=== PATIENT | female | born 1985 | race Caucasian/White ===

== ENCOUNTER 2016-08-12 04:35 | Inpatient (IN) | payer OTHER ==
[2016-08-12] VITALS (59 sets, daily range): BP systolic 95–133; BP diastolic 55–78
[~2016-08-12] VITALS: Ht 154.9 cm; Wt 73.1 kg
[2016-08-12] MEDS ORDERED: PREN1TAB86 PO (04:45)
[2016-08-12] MEDS ORDERED: D5 LR IV SOLUTION 1,000 ML IV ONE (05:00)
[2016-08-12] MEDS ORDERED: AMPICILLIN INJECTION 2,000 MG in NORMAL SALINE (BAXTER MINI) 50 ML IV ONE (05:07)
[2016-08-12] MEDS ORDERED: MINERAL OIL CONCENTRATE 99.9% 15 ML UDC TOP PRN (05:15)
[2016-08-12] MEDS ORDERED: LIDOCAINE/EPI 1%-1:200,000 (XYLOCAINE) 30 ML VIAL INJ PRN (05:15)
[2016-08-12 06:00] LABS: BASOPHILS % (AUTO) 0 % (0-10); EOSINOPHILS # (AUTO) 0.1 10^3/uL (0.0-0.3); EOSINOPHILS % (AUTO) 1 % (0-10); LYMPHOCYTES # (AUTO) 2.1 X 10^3 (1.0-4.0); LYMPHOCYTES % (AUTO) 17 % (12-44); MEAN CORPUSCULAR HEMOGLOBIN 29 PG (25-34); MEAN CORPUSCULAR HGB CONC 34 G/DL (32-36); MEAN CORPUSCULAR VOLUME 86 FL (80-99); MEAN PLATELET VOLUME 11.3 FL (7.4-10.4); MONOCYTES # (AUTO) 0.7 X 10^3 (0.0-1.0); MONOCYTES % (AUTO) 6 % (0-12); NEUTROPHILS # (AUTO) 9.5 X 10^3 (1.8-7.8); NEUTROPHILS % (AUTO) 77 % (42-75); PLATELET COUNT 233 10^3/uL (130-400); RED BLOOD COUNT 4.44 10^6/uL (4.35-5.85); RED CELL DISTRIBUTION WIDTH 13.1 % (10.0-14.5); WHITE BLOOD COUNT 12.4 10^3/uL (4.3-11.0)
[2016-08-12] MEDS ORDERED: CATHETER FLUSH 10 ML SYR IV SCH ×2 (06:00→22:00)
[2016-08-12] MEDS: D5 LR IV SOLUTION 1,000 ML IV SCH ×2 (06:01→12:34)
[2016-08-12] MEDS ORDERED: LIDOCAINE PF 2% 10 ML (XYLOCAINE) AMP ONE (06:15)
[2016-08-12] MEDS ORDERED: SUFENTA 1 MCG/ML BUPIVA 0.1% 100 ML ONE (06:15)
[2016-08-12] MEDS ORDERED: BUPIVACAINE 0.25% 30 ML (SENSORCAINE) VIAL ONE (06:15)
[2016-08-12] MEDS ORDERED: fentaNYL INJECTION 100 MCG/2 ML AMP ONE (06:15)
[2016-08-12] MEDS ORDERED: LACTATED RINGERS 1,000 ML IV ONE (06:22)
[2016-08-12] MEDS ORDERED: LACTATED RINGERS 1,000 ML IV SCH (07:26)
[2016-08-12] MEDS ORDERED: NALOXONE 0.4 MG/ML 1 ML (NARCAN) VIAL IV PRN ×2 (07:30)
[2016-08-12] MEDS ORDERED: METOCLOPRAMIDE INJ 10 MG/2 ML (REGLAN) IV PRN (07:30)
[2016-08-12] MEDS ORDERED: EPIDURAL (SUFENTANIL 1 MCG/ML BUPIVACAINE 0.1%) 100 ML EPI SCH (07:30)
[2016-08-12] MEDS ORDERED: fentaNYL INJECTION 100 MCG/2 ML AMP INJ ONE (07:30)
[2016-08-12] MEDS ORDERED: BUPIVACAINE 0.25% 30 ML (SENSORCAINE) VIAL INJ ONE (07:30)
[2016-08-12] MEDS ORDERED: diphenhydrAMINE 50 MG/ML INJ (BENADRYL) IV PRN (07:30)
[2016-08-12] MEDS ORDERED: OXYTOCIN/NORMAL SALINE 500 ML IV SCH ×2 (09:05→17:02)
[2016-08-12] MEDS: ONDANSETRON 4 MG/2 ML (SDV) Z0FRAN IV PRN ×2 (09:35→14:36)
[2016-08-12] MEDS ORDERED: AMPICILLIN 1000 MG INJECTION (IV/IM) ONE ×2 (09:43→15:40)
[2016-08-12] MEDS ORDERED: NORMAL SALINE (BAXTER MINI) 50 ML IV ONE (09:44)
[2016-08-12] MEDS: AMPICILLIN INJECTION 1,000 MG in NORMAL SALINE (BAXTER MINI) 50 ML IV SCH ×2 (09:54→15:49)
[2016-08-12] MEDS ORDERED: WITCH HAZEL(TUCKS) 40 EA JAR TOP PRN (17:15)
[2016-08-12] MEDS ORDERED: DIBUCAINE (NUPERCAINAL) 1% OINT 30 GM TOP PRN (17:15)
[2016-08-12] MEDS ORDERED: TETANUS,DIPTH,PERTUSS P/F (BOOSTRIX) 0.5 ML VIAL IM ONE (17:15)
[2016-08-12] MEDS ORDERED: HYDROcodone/APAP 5 MG/325 MG (LORTAB) TAB PO PRN (17:15)
[2016-08-12] MEDS ORDERED: MEASLES,MUMPS,RUBELLA 1 EA INJ SQ ONE (17:15)
[2016-08-12] MEDS ORDERED: BENZOCAINE/MENTHOL (DERMOPLAST) 56 ML CAN TP PRN (17:15)
--- NOTE | 2016-08-12 17:15 | OB Labor & Delivery Record ---
Vag Delivery Note Vag Delivery Note Date of Delivery: 08/12/16 Preoperative Diagnosis: Ngozi Lee is a 30 /Para 4 / 0,Gestational Age 40 weeks in active labor, GBS + Postoperative Diagnosis: Same Surgeon: DM HUDSON Anesthesia: epidural Delivery Type:vacuum assist Findings: Viable male , apgars Apgars were 2/9, weight, 7#7oz Lacerations: bilateral vaginal sulcus tears, the distal vagina was pulled free of the perineum. But there was no perineal laceration. The sphincter was intact. Right periurethral laceration. Intact placenta with 3 vessel cord. nuchal cord 2, reduced Estimated Blood Loss: 250 ml Complications: None Condition: Stable Description of Procedure: The patient is a 30 /Para 4 / 0,Gestational Age 40 weeks in active labor, GBS +. She was admitted and informed consent was obtained. Her labor course was remarkable for ampicillin prophylaxis for group B strep. She was given 3 full doses of ampicillin the first being a 2 g bolus. She was 3-4 cm dilated on admission. We started the ampicillin and then had artificial rupture membranes at 9 a.m. at that time she was approximately 5 cm dilated.She progressed to complete dilatation and began to push. she did not require any augmentation. The patient did have bloody show that appeared more than normal. But there is no evidence of abruption. There was meconium noted with delivery of the head. This was not noticed prior to delivery. She was then set up for delivery. she was pushing effectively however began having decelerations with each contraction. These did have recovery to baseline , but it became slower and slower, so the decision was made, with +2 station, to place a Kiwi vacuum. The head was delivered with assistance of maternal effort, and was delivered over an intact perineum. She had 2 sets of 3 pushes for delivery of the head with this vacuum. Vacuum was then removed. The infant's head was delivered atraumatically in the PEGGY position. there was a nuchal cord, and this was looped twice. This was reduced prior to delivery.The shoulders and remainder of the infant's body were then delivered without difficulty. at this point there was no meconium noted. This was fairly thick. Upon delivery, the head was held below the level of the perineum and the mouth and nares were bulb suctioned. The cord was doubly clamped and cut and the infant was handed off to the pediatric staff. An intact placenta with 3-vessel cord delivered via Renny and there was found to be minimal bleeding.~ Vigorous fundal massage was performed and the fundus was found to be firm. IV oxytocin was given. Examination of the vagina and perineum revealed a right periurethral laceration, and deep sulcal lacerations bilaterally. The posterior vaginal wall was disrupted from the perineum. But there was no perineal laceration and the sphincter was intact. These lacerations were repaired in the usual fashion with 3-0 Vicryl suture. a subsequent rectal exam revealed no disruption of the sphincter. This was also noted prior to repair. There was no rectal tear either. Following the repair, sponge, instrument and needle counts were correct. Mom and baby were both in stable condition in the labor suite. Vitals - Labs Vital Signs - I&O Vital Signs Date Time Temp Pulse Resp B/P Pulse Ox O2 Delivery O2 Flow Rate FiO2 08/12/16 11:00 64 18 131/60 100 Room Air 08/12/16 10:45 51 18 111/58 100 Room Air 08/12/16 10:30 51 18 104/57 100 Room Air 08/12/16 10:15 60 18 114/69 100 Room Air 08/12/16 10:00 96.4 60 18 115/68 100 Room Air 08/12/16 09:45 52 18 108/59 100 Room Air 08/12/16 09:30 49 18 101/57 100 Room Air 08/12/16 09:15 53 18 122/55 100 Room Air 08/12/16 09:00 79 18 95/55 100 Room Air 08/12/16 08:45 87 18 110/71 100 Room Air 08/12/16 08:30 63 18 105/62 100 Room Air 08/12/16 08:15 57 18 103/57 99 Room Air 08/12/16 08:00 95.8 18 Room Air 08/12/16 07:45 57 18 107/58 Room Air 08/12/16 07:41 57 18 107/57 Room Air 08/12/16 07:38 72 18 97/71 Room Air 08/12/16 07:35 72 18 105/61 Room Air 08/12/16 07:32 57 18 103/61 Room Air 08/12/16 07:29 53 18 107/58 Room Air 08/12/16 07:26 76 18 107/61 Room Air 08/12/16 07:23 74 18 111/63 100 Room Air 08/12/16 07:18 67 18 107/60 99 Room Air 08/12/16 07:15 66 18 106/59 100 Room Air 08/12/16 07:12 60 18 109/66 99 Room Air 08/12/16 07:09 56 18 112/63 100 Room Air 08/12/16 07:06 69 18 125/68 100 Room Air 08/12/16 07:03 66 18 124/65 100 Room Air 08/12/16 06:21 95.8 50 18 124/74 08/12/16 04:55 95.9 48 18 118/65 Labs Laboratory Tests 08/12/16 05:41: Basophils # (Auto) 0.0, Basophils (%) (Auto) 0, Eosinophils # (Auto) 0.1, Eosinophils (%) (Auto) 1, Hematocrit 38, Hemoglobin 12.9, Lymphocytes # (Auto) 2.1, Lymphocytes (%) (Auto) 17, Mean Corpuscular Hemoglobin 29, Mean Corpuscular Hemoglobin Concent 34, Mean Corpuscular Volume 86, Mean Platelet Volume 11.3H, Monocytes # (Auto) 0.7, Monocytes (%) (Auto) 6, Neutrophils # ( Auto) 9.5H, Neutrophils (%) (Auto) 77H, Platelet Count 233, Red Blood Count 4.44 , Red Cell Distribution Width 13.1, White Blood Count 12.4H DM HUDSON DO Aug 12, 2016 17:15
[2016-08-12] MEDS: IBUPROFEN 600 MG (MOTRIN) TAB PO SCH (17:39)
[2016-08-12] MEDS: DOCUSATE SODIUM 100 MG (COLACE) CAP PO SCH (21:30)
[2016-08-13] MEDS: IBUPROFEN 600 MG (MOTRIN) TAB PO SCH ×5 (00:35→23:44)
[2016-08-13 03:10] VITALS: BP 106/72
[2016-08-13 06:47] LABS: BASOPHILS % (AUTO) 0 % (0-10); EOSINOPHILS # (AUTO) 0.1 10^3/uL (0.0-0.3); EOSINOPHILS % (AUTO) 0 % (0-10); LYMPHOCYTES # (AUTO) 2.4 X 10^3 (1.0-4.0); LYMPHOCYTES % (AUTO) 13 % (12-44); MEAN CORPUSCULAR HEMOGLOBIN 30 PG (25-34); MEAN CORPUSCULAR HGB CONC 34 G/DL (32-36); MEAN CORPUSCULAR VOLUME 87 FL (80-99); MEAN PLATELET VOLUME 11.4 FL (7.4-10.4); MONOCYTES % (AUTO) 6 % (0-12); NEUTROPHILS # (AUTO) 14.3 X 10^3 (1.8-7.8); NEUTROPHILS % (AUTO) 81 % (42-75); PLATELET COUNT 229 10^3/uL (130-400); RED BLOOD COUNT 3.56 10^6/uL (4.35-5.85); WHITE BLOOD COUNT 17.7 10^3/uL (4.3-11.0)
[2016-08-13 08:45] VITALS: BP 108/44
[2016-08-13] MEDS: DOCUSATE SODIUM 100 MG (COLACE) CAP PO SCH ×2 (09:07→20:55)
[2016-08-13] MEDS: PRENATAL VITAMIN 1 EA TAB PO SCH (09:08)
[2016-08-13] MEDS: FERROUS SULF 325 MG (IRON) TAB PO SCH (09:08)
--- NOTE | 2016-08-13 10:41 | Postpartum Progress Note ---
Note Note Day # 1 s/p Subjective: Patient is without complaints. Ambulating, voiding. Tolerating a regular diet without nausea or vomiting. Normal lochia. Pain is well controlled with oral pain medications. breast feeding. Some pressure in the perineum. Objective: Laboratory Tests Test 08/13/16 06:11 Range/Units Basophils # (Auto) 0.0 0.0-0.1 10^3/uL Basophils (%) (Auto) 0 0-10 % Eosinophils # (Auto) 0.1 0.0-0.3 10^3/uL Eosinophils (%) (Auto) 0 0-10 % Hematocrit 31 L 35-52 % Hemoglobin 10.5 L 11.5-16.0 G/DL Lymphocytes # (Auto) 2.4 1.0-4.0 X 10^3 Lymphocytes (%) (Auto) 13 12-44 % Mean Corpuscular Hemoglobin 30 25-34 PG Mean Corpuscular Hemoglobin Concent 34 32-36 G/DL Mean Corpuscular Volume 87 80-99 FL Mean Platelet Volume 11.4 H 7.4-10.4 FL Monocytes # (Auto) 1.0 0.0-1.0 X 10^3 Monocytes (%) (Auto) 6 0-12 % Neutrophils # (Auto) 14.3 H 1.8-7.8 X 10^3 Neutrophils (%) (Auto) 81 H 42-75 % Platelet Count 229 130-400 10^3/uL Red Blood Count 3.56 L 4.35-5.85 10^6/uL Red Cell Distribution Width 13.0 10.0-14.5 % White Blood Count 17.7 H 4.3-11.0 10^3/uL Vital Sign - Last 24 Hours 08/12/16 08/12/16 08/12/16 08/12/16 10:45 11:00 11:15 11:30 Pulse 51 64 65 48 Resp 18 18 18 18 B/P 111/58 131/60 130/59 108/60 Pulse Ox 100 100 O2 Delivery Room Air Room Air Room Air Room Air 08/12/16 08/12/16 08/12/16 08/12/16 11:45 12:00 12:15 12:30 Pulse 52 81 50 50 Resp 18 18 18 18 B/P 108/61 111/61 113/67 105/63 O2 Delivery Room Air Room Air Room Air Room Air 08/12/16 08/12/16 08/12/16 08/12/16 12:45 13:00 13:15 13:30 Pulse 52 56 58 71 Resp 18 18 18 18 B/P 104/57 111/61 115/63 113/64 O2 Delivery Non Rebreather Non Rebreather Non Rebreather Non Rebreather O2 Flow Rate 10.00 10.00 10.00 10.00 08/12/16 08/12/16 08/12/16 08/12/16 13:45 14:00 14:15 14:30 Temp 97.3 Pulse 57 54 67 64 Resp 18 18 18 18 B/P 114/64 112/60 113/63 109/68 O2 Delivery Non Rebreather Non Rebreather Non Rebreather Non Rebreather O2 Flow Rate 10.00 10.00 10.00 10.00 08/12/16 08/12/16 08/12/16 08/12/16 14:45 15:00 15:15 15:30 Pulse 55 56 Resp 18 18 18 18 B/P 116/74 121/78 O2 Delivery Non Rebreather Non Rebreather Non Rebreather Non Rebreather O2 Flow Rate 10.00 10.00 10.00 10.00 08/12/16 08/12/16 08/12/16 08/12/16 15:45 16:00 16:05 16:10 Pulse 54 52 Resp 18 18 20 20 B/P 120/64 124/60 O2 Delivery Room Air Room Air Non Rebreather Non Rebreather O2 Flow Rate 10.00 10.00 08/12/16 08/12/16 08/12/16 08/12/16 16:14 16:26 16:41 16:56 Pulse 89 61 60 74 Resp 20 16 18 18 B/P 133/66 111/59 110/67 120/60 O2 Delivery Non Rebreather O2 Flow Rate 10.00 08/12/16 08/12/16 08/12/16 08/12/16 17:10 17:25 17:40 17:55 Temp 97.8 Pulse 45 98 88 69 Resp 18 20 18 18 B/P 124/67 130/68 119/60 122/68 08/12/16 08/12/16 08/12/16 08/13/16 18:11 18:26 22:10 03:10 Temp 97.8 98.0 Pulse 86 63 76 61 Resp 18 18 16 16 B/P 115/61 108/55 110/65 106/72 Pulse Ox 97 99 O2 Delivery Room Air Room Air 08/13/16 08:45 Temp 98.2 Pulse 66 Resp 16 B/P 108/44 Pulse Ox 98 O2 Delivery Room Air Intake and Output 08/12/16 08/12/16 08/13/16 15:00 23:00 07:00 Intake Total 50 ml 1950 ml Balance 50 ml 1950 ml Physical Exam: General - Alert and oriented, no apparent distress Abdomen - Soft, appropriately tender to palpation, non-distended, fundus firm at umbilicus Extremities - no edema, negative Tonie's bilaterally Assessment: 1. post- day # 1, status post vacuum assisted vaginal delivery. Recovering well, hemodynamically stable Plan: Routine care. Encourage breast feeding. Encourage ambulation. Ferrous sulfate supplementation. Plan for discharge tomorrow. Vitals - Labs Vital Signs - I&O Vital Signs Date Time Temp Pulse Resp B/P Pulse Ox O2 Delivery O2 Flow Rate FiO2 08/13/16 08:45 98.2 66 16 108/44 98 Room Air 08/13/16 03:10 98.0 61 16 106/72 99 Room Air 08/12/16 22:10 97.8 76 16 110/65 97 Room Air 08/12/16 18:26 63 18 108/55 08/12/16 18:11 86 18 115/61 08/12/16 17:55 69 18 122/68 08/12/16 17:40 97.8 88 18 119/60 08/12/16 17:25 98 20 130/68 08/12/16 17:10 45 18 124/67 08/12/16 16:56 74 18 120/60 08/12/16 16:41 60 18 110/67 08/12/16 16:26 61 16 111/59 08/12/16 16:14 89 20 133/66 Non Rebreather 10.00 08/12/16 16:10 20 Non Rebreather 10.00 08/12/16 16:05 20 Non Rebreather 10.00 08/12/16 16:00 52 18 124/60 Room Air 08/12/16 15:45 54 18 120/64 Room Air 08/12/16 15:30 56 18 121/78 Non Rebreather 10.00 08/12/16 15:15 55 18 116/74 Non Rebreather 10.00 08/12/16 15:00 18 Non Rebreather 10.00 08/12/16 14:45 18 Non Rebreather 10.00 08/12/16 14:30 97.3 64 18 109/68 Non Rebreather 10.00 08/12/16 14:15 67 18 113/63 Non Rebreather 10.00 08/12/16 14:00 54 18 112/60 Non Rebreather 10.00 08/12/16 13:45 57 18 114/64 Non Rebreather 10.00 08/12/16 13:30 71 18 113/64 Non Rebreather 10.00 08/12/16 13:15 58 18 115/63 Non Rebreather 10.00 08/12/16 13:00 56 18 111/61 Non Rebreather 10.00 08/12/16 12:45 52 18 104/57 Non Rebreather 10.00 08/12/16 12:30 50 18 105/63 Room Air 08/12/16 12:15 50 18 113/67 Room Air 08/12/16 12:00 81 18 111/61 Room Air 08/12/16 11:45 52 18 108/61 Room Air 08/12/16 11:30 48 18 108/60 Room Air 08/12/16 11:15 65 18 130/59 Room Air 08/12/16 11:00 64 18 131/60 100 Room Air 08/12/16 10:45 51 18 111/58 100 Room Air I & O 08/13/16 07:00 Intake Total 2000 ml Balance 2000 ml Labs Laboratory Tests 08/13/16 06:11: Basophils # (Auto) 0.0, Basophils (%) (Auto) 0, Eosinophils # (Auto) 0.1, Eosinophils (%) (Auto) 0, Hematocrit 31L, Hemoglobin 10.5L, Lymphocytes # (Auto ) 2.4, Lymphocytes (%) (Auto) 13, Mean Corpuscular Hemoglobin 30, Mean Corpuscular Hemoglobin Concent 34, Mean Corpuscular Volume 87, Mean Platelet Volume 11.4H, Monocytes # (Auto) 1.0, Monocytes (%) (Auto) 6, Neutrophils # ( Auto) 14.3H, Neutrophils (%) (Auto) 81H, Platelet Count 229, Red Blood Count 3.56L, Red Cell Distribution Width 13.0, White Blood Count 17.7H DM HUDSON DO Aug 13, 2016 10:41 DM HUDSON DO Aug 13, 2016 10:41
[2016-08-13] MEDS ORDERED: IBUP-1773 PO (11:10)
[2016-08-13] MEDS ORDERED: FERR-74 PO (11:10)
[2016-08-13] MEDS ORDERED: DOCU100C37 PO (11:10)
--- NOTE | 2016-08-13 11:14 | Discharge Inst-Women's Service ---
Discharge Inst-Women's Serv Depart Medication/Instructions New, Converted or Re-Newed RX: Call to Patients Pharmacy Final Diagnosis labor, GBS + Vacuum assisted delivery meconium Consults/Follow Up Additional Follow Up: Yes (1-2 weeks with trish to check vaginal laceration. 6 weeks pp exam.) Activity Activity: Activity as Tolerated Driving Instructions: You May Drive NO SMOKING: NO SMOKING Nothing Inside Vagina: No Douching, No [place], No Tampons Diet Discharge Diet: No Restrictions Symptoms to Report to DrNeil: Pain Increased, Fever Over 101 Degrees F, Vaginal Bleeding Increase, Vaginal Discharge Foul For Any Problems or Questions: Contact Your Physician DM HUDSON DO Aug 13, 2016 11:14
[2016-08-13] MEDS ORDERED: ACETAMINOPHEN 500 MG TAB (TYLENOL) PO PRN (11:15)
--- NOTE | 2016-08-13 12:00 | Anesthesia-Regional Post-Op ---
Regional Patient Condition Mental Status: Alert, Oriented x3 Circulation: Same as Pre-Op Headache: Absent Sensation: Full Recovery Motor Block: Absent Post Op Complications Complications None Follow Up Care/Instructions Patient Instructions None needed. Anesthesia/Patient Condition Patient is doing well, no complaints, stable vital signs, no apparent adverse anesthesia problems. No complications reported per nursing. FERNANDA WELLS CRNA Aug 13, 2016 11:59
[2016-08-13 12:25] VITALS: BP 107/54
[2016-08-13 18:30] VITALS: BP 114/74
[2016-08-13 23:35] VITALS: BP 110/70
[2016-08-14 06:43] VITALS: BP 119/72
[2016-08-14] MEDS: IBUPROFEN 600 MG (MOTRIN) TAB PO SCH ×2 (06:43→14:05)
[2016-08-14] MEDS: PRENATAL VITAMIN 1 EA TAB PO SCH (07:50)
[2016-08-14] MEDS: FERROUS SULF 325 MG (IRON) TAB PO SCH (07:51)
[2016-08-14] MEDS: DOCUSATE SODIUM 100 MG (COLACE) CAP PO SCH (07:51)
--- NOTE | 2016-08-14 08:03 | Postpartum Progress Note ---
Note Note Day # 2 s/p Plan discharge later today after meeting with Rose Subjective: Patient is without complaints. Ambulating, voiding. Tolerating a regular diet without nausea or vomiting. Normal lochia. Pain is well controlled with oral pain medications. breast feeding Patient was sleeping when I rounded so I did not disturb her as she had little sleep last night. conferred with night nurse and daytime nurse. Objective: Vital Signs 08/12/16 08/14/16 16:14 06:43 Temp 97.7 Pulse 64 Resp 18 B/P 119/72 Pulse Ox 99 O2 Delivery Room Air O2 Flow Rate 10.00 Physical Exam: General - Alert and oriented, no apparent distress Abdomen - Soft, appropriately tender to palpation, non-distended, fundus firm at umbilicus Extremities - no edema, negative Tonie's bilaterally Assessment: 1. post- day # 1, status post vacuum assist vaginal delivery. Recovering well, hemodynamically stable Plan: Routine care. Encourage breast feeding. Encourage ambulation. Ferrous sulfate supplementation. Plan for discharge today Vitals - Labs Vital Signs - I&O Vital Signs Date Time Temp Pulse Resp B/P Pulse Ox O2 Delivery O2 Flow Rate FiO2 08/14/16 06:43 97.7 64 18 119/72 99 Room Air 08/13/16 23:35 97.7 63 18 110/70 100 Room Air 08/13/16 18:30 97.3 73 18 114/74 99 Room Air 08/13/16 12:25 97.9 68 18 107/54 99 Room Air 08/13/16 08:45 98.2 66 16 108/44 98 Room Air DM HUDSON DO Aug 14, 2016 08:03
[2016-08-14] MEDS ORDERED: MEASLES,MUMPS,RUBELLA 1 EA INJ ONE (10:22)
== END 2016-08-14 14:55 | disposition home or self-care (01) | DRG 775 ==
LOC: WSo 04:35 → LDRP 04:39 → WSo 05:08 → LDRP 22:18
PROVIDERS: ADMIT Obstetrics & Gynecology; ATTEND Obstetrics & Gynecology
PROC: 10D07Z6 Extraction of Products of Conception, Vacuum, Via Natural or Artificial Opening (ICD-10-PCS; principal; 2016-08-12)
PROC: 0UQMXZZ Repair Vulva, External Approach (ICD-10-PCS; 2016-08-12)
PROC: 0UQGXZZ Repair Vagina, External Approach (ICD-10-PCS; 2016-08-12)
DX: O76 Abnormality in fetal heart rate and rhythm complicating labor and delivery (principal); O99.824 Streptococcus B carrier state complicating childbirth; O71.4 Obstetric high vaginal laceration alone; O71.82 Other specified trauma to perineum and vulva; O77.0 Labor and delivery complicated by meconium in amniotic fluid; O69.81X0 Labor and delivery complicated by cord around neck, without compression, not applicable or unspecified; Z37.0 Single live birth; Z3A.40 40 weeks gestation of pregnancy; Z23 Encounter for immunization
CPT/HCPCS: 36415; 85025; 86850; 86900; 86901; 90707; 99212

== ENCOUNTER → 2019-12-15 | Outpatient (CLI) | payer OTHER ==
[~2019-12-15] MED LIST: DOCU100C37 PO; FERR325T18 PO; IBUP-1773 PO; PREN1TAB86 PO
--- NOTE | 2019-12-15 16:59 | Diagnostic Imaging Report ---
INDICATION: anatomy survey. TECHNIQUE: Multiple real-time grayscale images were obtained over the gravid uterus. COMPARISON: None. FINDINGS: The cervix is closed measuring 5.4 cm in length. Placenta is anteriorly located and there is no previa. heart rate is 149 BPM. Due to advanced gestational age, the maternal adnexa are not well seen. anatomy survey is performed and the following structures are visualized and normal: Stomach, urinary bladder, three-vessel cord, spine, cerebellum, cisterna magna, cerebral ventricles, diaphragm, lips/nose, four-chamber heart, and all four extremities. Biometrical measurements are as follows: Biparietal 4.98 cm, age 21 weeks 1 days. Head circumference 18.22 cm, age 20 weeks 5 days. Abdominal circumference 16.47 cm, age 21 weeks 4 days. Femur length 3.28 cm, age 20 weeks 2 days. Sonographic estimate age: 21 weeks 0 days. Sonographic estimated date of delivery: 04/26/20. Estimated Weight: 386 gm (+/- 56 gm). LMP percentile: 86%. heart rate: 149 beats per minute. number: 1 of 1. IMPRESSION: 1. Single live intrauterine with normal anatomy survey. Dictated by: Dictated on workstation # [id number]
== END ==
LOC: RAD 15:43
PROVIDERS: ATTEND Obstetrics & Gynecology
DX: Z34.92 Encounter for supervision of normal pregnancy, unspecified, second trimester (principal)
CPT/HCPCS: 76805

== ENCOUNTER 2020-04-14 01:33 | Inpatient (IN) | payer OTHER ==
[~2020-04-14] VITALS: Ht 154.9 cm; Wt 74.3 kg
[2020-04-14] VITALS (41 sets, daily range): BP systolic 80–128; BP diastolic 40–73
--- NOTE | 2020-04-14 01:34 | NUR ---
POP PHELAN presented to unit via W/C from ED, accompanied by SO, with c/o CONTRACTIONS. POP PHELAN weighed, gowned, voided, and to bed. EFHM and TOCO applied, VS taken. POP PHELAN oriented to bed controls, call light, TV, heat, and A/C controls.
--- NOTE | 2020-04-14 02:05 | NUR ---
This rn contacted [facility] [place] and spoke with Matthias who reported GBS status to be positive. Awaiting fax records at this time.
[2020-04-14] MEDS ORDERED: D5 LR IV SOLUTION 1,000 ML IV ONE (02:26)
[2020-04-14] MEDS ORDERED: AMPICILLIN FOR IV USE 2,000 MG in WATER (STERILE) FOR INJECTION 14.8 ML IV SCH (02:32)
[2020-04-14] MEDS ORDERED: D5 LR IV SOLUTION 1,000 ML IV SCH (02:32)
[2020-04-14] MEDS ORDERED: fentaNYL 2 mcg/ml BUPIVA 0.125 0 ML ONE (02:33)
[2020-04-14] MEDS ORDERED: AMPICILLIN FOR IV USE 2,000 MG VIAL ONE (02:33)
[2020-04-14] MEDS ORDERED: WATER (STERILE) FOR INJECTION 20 ML ONE (02:33)
[2020-04-14] MEDS ORDERED: LACTATED RINGERS 1,000 ML IV ONE ×3 (02:45→05:48)
[2020-04-14] MEDS ORDERED: MINERAL OIL CONCENTRATE 99.9% 15 ML UDC TOP PRN (02:45)
[2020-04-14 03:01] LABS: BASOPHILS % (AUTO) 0 % (0-10); EOSINOPHILS % (AUTO) 0 % (0-10); HEMATOCRIT 36 % (35-52); HEMOGLOBIN 12.1 G/DL (11.5-16.0); LYMPHOCYTES # (AUTO) 0.8 X 10^3 (1.0-4.0); LYMPHOCYTES % (AUTO) 7 % (12-44); MEAN CORPUSCULAR HEMOGLOBIN 29 PG (25-34); MEAN CORPUSCULAR HGB CONC 34 G/DL (32-36); MEAN CORPUSCULAR VOLUME 85 FL (80-99); MEAN PLATELET VOLUME 10.9 FL (7.4-10.4); MONOCYTES # (AUTO) 0.8 X 10^3 (0.0-1.0); MONOCYTES % (AUTO) 7 % (0-12); NEUTROPHILS % (AUTO) 86 % (42-75); PLATELET COUNT 201 10^3/uL (130-400); WHITE BLOOD COUNT 11.7 10^3/uL (4.3-11.0)
[2020-04-14] MEDS ORDERED: LACT1CAP64 PO (03:11)
[2020-04-14] MEDS ORDERED: fentaNYL 2 mcg/ml BUPIVA 0.125 100 ML ONE (03:20)
[2020-04-14] MEDS ORDERED: fentaNYL INJECTION 100 MCG/2 ML AMP ONE (03:41)
[2020-04-14] MEDS ORDERED: diphenhydrAMINE 50 MG/ML INJ (BENADRYL) IV PRN (04:45)
[2020-04-14] MEDS ORDERED: NALOXONE 0.4 MG/ML 1 ML (NARCAN) VIAL IV PRN ×2 (04:45)
[2020-04-14] MEDS ORDERED: ONDANSETRON 4 MG/2 ML (SDV) Z0FRAN IV PRN (04:45)
[2020-04-14] MEDS ORDERED: EPIDURAL (fentaNYL 2 MCG/ML BUPIVA 0.125%)100 ML BAG EPI PRN (04:45)
[2020-04-14] MEDS ORDERED: METOCLOPRAMIDE INJ 10 MG/2 ML (REGLAN) IV PRN (04:45)
[2020-04-14] MEDS ORDERED: OXYTOCIN PRE-MIX DRIP 500 ML IV ONE (05:11)
[2020-04-14] MEDS ORDERED: LIDOCAINE/EPI 2% 1:200,00 (XYLOCAINE) 10 ML VIAL ONE (05:12)
--- NOTE | 2020-04-14 05:19 | History & Physical-OB ---
OB - Chief Complaint & HPI Date/Time Date of Admission: Date of Admission: Apr 14, 2020 at 02:27 Date seen by a Provider: Apr 14, 2020 Time Seen by a Provider: 05:00 Chief Complaint/History OB-Reason for Admission/Chief: GBS + Hx : 2 Hx Para: 1 Expected Date of Delivery: May 02, 2020 Gestational Age in Weeks: 37 Gestational Age in Days: 3 Admission Nurse Assessment Rev: Yes History of Labs O+/- HIV - HbSAg - Rub I VDRL NR Hep C - GBS + Allergies and Home Medications Allergies Coded Allergies: codeine (Verified Allergy, Severe, 08/12/16) Home Medications Lactobacillus Combo No.11 1 Each Cap.sprink, 1 EACH PO DAILY, (Reported) Vit W-Ca,Fe,FA(<1 mg) 1 Each Tablet, 1 EACH PO DAILY, (Reported) Patient Home Medication List Home Medication List Reviewed: Yes OB - History Hx of Present Care: Yes Ultrasounds: Normal mid trimester US Obstetrical Complications: None Medical Complications: None Information Induced Hypertension: No Maternal Gestational Diabetes: No Hemorrhage: No Obstetrical History Hx : 2 Hx Para: 1 Hx # Term Pregnancies: 1 Hx # Pregnancies: 1 Number of Living Children: 1 Hx Multiple Gestation: No Hx Ectopic : No Hx Stillbirth: No Hx Complication: No Hx Induced Hypertens: No Hx Maternal Gestational Diabet: No Hx Hemorrhage: No Delivery History Hx Dystocia: No Hx Forceps Assisted Delivery: No Hx Vacuum Extraction Assisted: No Hx Placenta Abnormality: No Hx Distress: No Hx Large For Gestational Age I: No Hx Small for Gestational Age I: No Hx Section: No Hx Vaginal Delivery Post C-Sec: No Hx Blood Disorders: No Adverse Rxn to Tranfusion: No Patient Past Medical History NC Social History/Family History HIV/AIDS: No Recent Infectious Disease Expo: No Sexually Transmitted Disease: No Alcohol Use: Denies Use Recreational Drug Use: No Smoking Cessation: Never smoker Immunizations Hepatitis A: No Hepatitis B: No Tetanus Booster (TDap): Less than 5yrs (02/05/20) Date of Influenza Vaccine: May 12, 2016 Rubella: immune RPR/VDRL: Negative GBS Status: Positive HBsAG: Negative OB - Admission Exam Physical Exam Vitals: Vital Signs 04/14/20 04/14/20 02:00 03:00 Temp 36.4 Pulse 60 Resp 18 B/P (MAP) 111/58 (75) Pulse Ox 99 O2 Delivery Room Air Heart: Rhythm Normal Lungs: Clear, Equal Abdomen: Gravid Extremities: Edema Reflexes: Normal Cervical Dilatation: 4cm Effacement: 75% Station: -1 Membranes: Intact Heart Rate: 130's Accelerations: Accelerations Present Decelerations: No Decelerations Short Term Variability: Present Returns Supervisor Variability: Average (6-25) Contractions on Admission: 6-10 Minutes Apart Intensity: Moderate Labs Laboratory Tests Test 04/14/20 02:52 Range/Units White Blood Count 11.7 H 4.3-11.0 10^3/uL Red Blood Count 4.21 L 4.35-5.85 10^6/uL Hemoglobin 12.1 11.5-16.0 G/DL Hematocrit 36 35-52 % Mean Corpuscular Volume 85 80-99 FL Mean Corpuscular Hemoglobin 29 25-34 PG Mean Corpuscular Hemoglobin Concent 34 32-36 G/DL Red Cell Distribution Width 13.5 10.0-14.5 % Platelet Count 201 130-400 10^3/uL Mean Platelet Volume 10.9 H 7.4-10.4 FL Neutrophils (%) (Auto) 86 H 42-75 % Lymphocytes (%) (Auto) 7 L 12-44 % Monocytes (%) (Auto) 7 0-12 % Eosinophils (%) (Auto) 0 0-10 % Basophils (%) (Auto) 0 0-10 % Neutrophils # (Auto) 10.0 H 1.8-7.8 X 10^3 Lymphocytes # (Auto) 0.8 L 1.0-4.0 X 10^3 Monocytes # (Auto) 0.8 0.0-1.0 X 10^3 Eosinophils # (Auto) 0.0 0.0-0.3 10^3/uL Basophils # (Auto) 0.0 0.0-0.1 10^3/uL OB - Assessment/Plan/Diagnosis Assessment Assessment: active labor, group B positive strep Admission Dx Admitted for labor Anticipate Peds - [place] Ampicillin for GBS prophylaxis Admission Status: Inpatient Order (span 2 midnights) Reason for Inpatient Admission: labor Plan Plan: Expectant Management DM HUDSON DO Apr 14, 2020 05:19
[2020-04-14] MEDS ORDERED: CATHETER FLUSH 10 ML SYR IV SCH (06:00)
[2020-04-14] MEDS ORDERED: AMPICILLIN FOR IV USE 1,000 MG in WATER (STERILE) FOR INJECTION 7.4 ML IV SCH (06:45)
--- NOTE | 2020-04-14 06:53 | Anesthesia-Regional Post-Op ---
Regional Patient Condition Mental Status: Alert, Oriented x3 Circulation: Same as Pre-Op Headache: Absent Sensation: Full Recovery Motor Block: Absent Post Op Complications Complications None Follow Up Care/Instructions Patient Instructions None needed. Anesthesia/Patient Condition Patient is doing well, no complaints, stable vital signs, no apparent adverse anesthesia problems. No complications reported per nursing. HARRY MICHELLE CRNA Apr 14, 2020 06:52
[2020-04-14] MEDS ORDERED: OXYTOCIN PRE-MIX DRIP 500 ML IV SCH (07:45)
--- NOTE | 2020-04-14 08:10 | NUR ---
of viable female via Dr Moran.[id number] Moran and cut via Dad. annae to mom's abdomen. Jaci Damon RN assuming care for annae. 0813 placenta delivered. 0815 1st degree with rt periurethral tear repair with 3.o vicryl rapide suture. 0820 Dr Moran finished pt to semi fowlers. no concerns voiced at this time.
[2020-04-14] MEDS: OXYTOCIN PRE-MIX DRIP 500 ML IV SCH ×3 (08:11→08:55)
--- NOTE | 2020-04-14 08:20 | NUR ---
0820 Post recovery. [email or web address] mod [email or web address] no clots expressed. call light within reach. IV infusing without difficulty. [email or web address] mod [email or web address] no clots expressed. 0844 [email or web address] mod rubra no clots expressed. [email or web address]@U. mod rubra no clots expressed. 0914 FF 1 below umb. mod rubra no clots expressed. 0929 FF 1 below umb. mod rubra no clots expressed. mom breast feeding babe without difficulty. 0944 FF 1 below umb. mod rubra no clots expressed. 0959 FF 1 below umb. mod rubra no clots expressed. 1014 FF 1 below umb. mod rubra no clots expressed. mom eating regular diet. recovery period ended. pt legs remain slight numb. moves lower extremities slowly but with control. no concerns voiced via pt.
[2020-04-14] MEDS ORDERED: DIBUCAINE (NUPERCAINAL) 1% OINT 30 GM TOP PRN (08:30)
[2020-04-14] MEDS ORDERED: MEASLES,MUMPS,RUBELLA 1 EA INJ SQ ONE (08:30)
[2020-04-14] MEDS ORDERED: WITCH HAZEL(TUCKS) 40 EA JAR TOP PRN (08:30)
[2020-04-14] MEDS ORDERED: BENZOCAINE/MENTHOL (DERMOPLAST) 60 ML CAN TP PRN (08:30)
[2020-04-14] MEDS ORDERED: TETANUS,DIPTH,PERTUSS P/F (BOOSTRIX) 0.5 ML VIAL IM ONE (08:30)
--- NOTE | 2020-04-14 08:33 | OB Labor & Delivery Record ---
Vag Delivery Note Vag Delivery Note Date of Delivery: 04/14/20 Preoperative Diagnosis: Ngozi Lee is a 34 /Para 2 / 1,Gestational Age 37 3/7 weeks in labor, GBS + Postoperative Diagnosis: Same Surgeon: DM HUDSON Anesthesia: epidural Delivery Type: epidural Findings: Viable female infant, apgars pending, weight [7# 3 ounces Lacerations: 1st degree and right periurethral (did not include the urethra nor the clitoris) Intact placenta with 3 vessel cord. No shoulder dystocia Estimated Blood Loss: 250 ml Complications: None Condition: Stable Description of Procedure: The patient is a 34 year old female who presented in active labor. She was admitted and informed consent was obtained. Her labor course was remarkable for SROM with pushing, GBS +, received 2 doses of prophylactic ampicillin. She progressed to complete dilatation and began to push. She was then set up for delivery. I did a straight cauterization with a red rubber catheter under sterile conditions with resultant 750 ml of clear urine. The 's head was delivered atraumatically in the PEGGY position. The shoulders and remainder of the infant's body were then delivered without difficulty. Upon delivery, the head was held below the level of the perineum and the mouth and nares were bulb suctioned. There was a nuchal cord x 1 that was delivered through. The cord was doubly clamped and cut and the was handed off to the pediatric staff. An intact placenta with 3-vessel cord delivered via Renny and there was found to be minimal bleeding.~ Vigorous fundal massage was performed and the fundus was found to be firm. IV oxytocin was given. Examination of the vagina and perineum revealed a 1st degree laceration and a left periurethral laceration repaired in the usual fashion with 3-0 vicryl suture. Following the repair, sponge, instrument and needle counts were correct. Mom and baby were both in stable condition in the labor suite. Vitals - Labs Vital Signs - I&O Vital Signs Date Time Temp Pulse Resp B/P (MAP) Pulse Ox O2 Delivery O2 Flow Rate FiO2 04/14/20 07:00 66 18 94/71 (79) 100 Room Air 04/14/20 06:45 73 18 89/51 (64) 99 Room Air 04/14/20 06:30 82 18 91/55 (67) 100 Room Air 04/14/20 06:25 66 18 90/54 (66) 99 Room Air 04/14/20 06:15 76 18 87/52 (64) 99 Room Air 04/14/20 06:10 75 18 87/50 (62) 100 Room Air 04/14/20 06:00 61 18 83/41 (55) 97 Room Air 04/14/20 05:50 84 18 84/45 (58) 97 Room Air 04/14/20 05:45 76 18 80/40 (53) 97 Room Air 04/14/20 05:30 63 18 90/45 (60) 97 Room Air 04/14/20 05:15 65 18 90/50 (63) 97 Room Air 04/14/20 05:10 73 18 96/52 (67) 97 Room Air 04/14/20 05:05 69 18 105/55 (72) 97 Room Air 04/14/20 05:00 61 18 104/51 (68) 97 Room Air 04/14/20 04:55 63 18 105/52 (69) 96 Room Air 04/14/20 04:50 73 18 106/55 (72) 96 Room Air 04/14/20 04:45 71 18 117/60 (79) 94 Room Air 04/14/20 04:40 71 18 128/62 (84) 96 Room Air 04/14/20 04:35 73 18 115/64 (81) 96 Room Air 04/14/20 04:30 79 18 115/73 (87) 96 Room Air 04/14/20 04:10 66 18 114/71 (85) 97 Room Air 04/14/20 03:45 67 18 116/65 (82) Room Air 04/14/20 03:30 36.2 63 18 115/58 (77) Room Air 04/14/20 03:00 60 18 111/58 (75) 99 Room Air 04/14/20 02:00 36.4 04/14/20 01:44 36.4 63 18 99 Room Air I & O 04/14/20 07:00 Intake Total 1000 ml Balance 1000 ml Labs Laboratory Tests 04/14/20 02:52: White Blood Count 11.7H, Red Blood Count 4.21L, Hemoglobin 12.1, Hematocrit 36, Mean Corpuscular Volume 85, Mean Corpuscular Hemoglobin 29, Mean Corpuscular Hemoglobin Concent 34, Red Cell Distribution Width 13.5, Platelet Count 201, Mean Platelet Volume 10.9H, Neutrophils (%) (Auto) 86H, Lymphocytes (%) (Auto) 7L, Monocytes (%) (Auto) 7, Eosinophils (%) (Auto) 0, Basophils (%) (Auto) 0, Neutrophils # (Auto) 10.0H, Lymphocytes # (Auto) 0.8L, Monocytes # (Auto) 0.8, Eosinophils # (Auto) 0.0, Basophils # (Auto) 0.0 DM HUDSON DO Apr 14, 2020 08:33
--- NOTE | 2020-04-14 08:35 | Short Stay Summary ---
Discharge Summary Hospital Course Was the Problem List Reviewed?: Yes Final Diagnosis: active labor, GBS +, vaginal delivery Hospital Course Date of Admission: Apr 14, 2020 at 02:27 Admission Diagnosis : Family Physician/Provider: Valarie Cardenas MD Date of Discharge: 04/14/20 Discharge Diagnosis: [ ] Hospital Course: [ ] Labs and Pending Lab Test: Laboratory Tests 04/14/20 02:52: White Blood Count 11.7H, Red Blood Count 4.21L, Hemoglobin 12.1, Hematocrit 36, Mean Corpuscular Volume 85, Mean Corpuscular Hemoglobin 29, Mean Corpuscular Hemoglobin Concent 34, Red Cell Distribution Width 13.5, Platelet Count 201, Mean Platelet Volume 10.9H, Neutrophils (%) (Auto) 86H, Lymphocytes (%) (Auto) 7L, Monocytes (%) (Auto) 7, Eosinophils (%) (Auto) 0, Basophils (%) (Auto) 0, Neutrophils # (Auto) 10.0H, Lymphocytes # (Auto) 0.8L, Monocytes # (Auto) 0.8, Eosinophils # (Auto) 0.0, Basophils # (Auto) 0.0 Home Meds Active Reported Probiotic (Lactobacillus Combo No.11) 1 Each Cap.sprink 1 Each PO DAILY Vitamins ( Vit W-Ca,Fe,FA(<1 mg)) 1 Each Tablet 1 Each PO DAILY Assessment/Pt Instructions Post vaginal delivery Discharge Instructions Discharge Diet: No Restrictions Activity as Tolerated: Yes Discharge Physical Examination General Appearance: Alert HEENT: Atraumatic Respiratory: Clear to Auscultation, Normal Air Movement Cardiovascular: Regular Rate, Normal S1, Normal S2 Abdominal: Normal Bowel Sounds Allergies: Coded Allergies: codeine (Verified Allergy, Severe, 08/12/16) Discharge Summary Date of Admission Apr 14, 2020 at 02:27 Date of Discharge 04/15/2020 Discharge Date: Apr 15, 2020 Admission Diagnosis labor GBS + Consults/Procedures Procedures vaginal delivery Clinical Quality Measures DVT/VTE Risk/Contraindication: Risk Factor Score Per Nursin RFS Level Per Nursing on Admit: 2=Moderate DM HUDSON DO Apr 14, 2020 08:35
--- NOTE | 2020-04-14 08:40 | NUR ---
DCD epidural cath without difficulty. tip intact. site clean band aide applied.
[2020-04-14] MEDS: DOCUSATE SODIUM 100 MG (COLACE) CAP PO SCH ×2 (09:00→20:12)
--- NOTE | 2020-04-14 10:45 | NUR ---
pt up to BR with assist. stable on feet. denies urge to void. bladder non-distended. attempted to void unable to. vicente care and ice pack given. hands washed and to wheel chair..
--- NOTE | 2020-04-14 10:50 | NUR ---
IV to [place].
--- NOTE | 2020-04-14 11:00 | NUR ---
pt moved to room 310 via wheel chair. moved baby via crib. pt stood without difficulty to bed call light within reach. no concerns voiced via pt. SL intact.
[2020-04-14] MEDS: IBUPROFEN 600 MG (MOTRIN) TAB PO SCH ×2 (11:50→18:07)
[2020-04-14] MEDS: ACETAMINOPHEN 500 MG TAB (TYLENOL) PO SCH ×2 (12:33→18:07)
--- NOTE | 2020-04-14 16:00 | NUR ---
REPORT RECEIVED FROM PHILLIP GRAMAJO RN.
--- NOTE | 2020-04-14 18:00 | NUR ---
EATING DINNER. DENIES ANY PAIN AT THIS TIME.
[2020-04-14] MEDS: CATHETER FLUSH 10 ML SYR IV SCH ×2 (20:16→22:52)
[2020-04-15] VITALS: BP 112/75
[2020-04-15] MEDS: IBUPROFEN 600 MG (MOTRIN) TAB PO SCH ×3 (00:17→12:41)
[2020-04-15] MEDS: ACETAMINOPHEN 500 MG TAB (TYLENOL) PO SCH ×3 (00:17→12:42)
[2020-04-15 04:00] VITALS: BP 91/56
[2020-04-15] MEDS: CATHETER FLUSH 10 ML SYR IV SCH (06:08)
[2020-04-15 06:50] LABS: BASOPHILS % (AUTO) 0 % (0-10); EOSINOPHILS # (AUTO) 0.1 10^3/uL (0.0-0.3); EOSINOPHILS % (AUTO) 1 % (0-10); HEMATOCRIT 32 % (35-52); HEMOGLOBIN 10.5 G/DL (11.5-16.0); LYMPHOCYTES # (AUTO) 1.8 X 10^3 (1.0-4.0); LYMPHOCYTES % (AUTO) 19 % (12-44); MEAN CORPUSCULAR HEMOGLOBIN 29 PG (25-34); MEAN CORPUSCULAR HGB CONC 33 G/DL (32-36); MEAN CORPUSCULAR VOLUME 86 FL (80-99); MONOCYTES # (AUTO) 0.9 X 10^3 (0.0-1.0); MONOCYTES % (AUTO) 9 % (0-12); NEUTROPHILS # (AUTO) 6.7 X 10^3 (1.8-7.8); NEUTROPHILS % (AUTO) 71 % (42-75); PLATELET COUNT 178 10^3/uL (130-400); WHITE BLOOD COUNT 9.5 10^3/uL (4.3-11.0)
[2020-04-15] MEDS ORDERED: PRENATAL VITAMIN 1 EA TAB PO SCH (07:00)
[2020-04-15] MEDS ORDERED: FERROUS SULF 325 MG (IRON) TAB PO SCH (07:00)
--- NOTE | 2020-04-15 07:50 | NUR ---
Dr Moran here to see pt.
--- NOTE | 2020-04-15 07:57 | Postpartum Progress Note ---
Note Note Day # 1 s/p Subjective: Patient is without complaints. Ambulating, voiding. Tolerating a regular diet w ithout nausea or vomiting. Normal lochia. Pain is well controlled with oral pain medications. breast feeding. Objective: 04/14/20 04/15/20 04/15/20 20:00 00:00 04:00 Temp 36.7 36.0 35.9 Pulse 64 71 72 Resp 18 16 16 B/P (MAP) 107/70 (82) 112/75 (87) 91/56 (68) Pulse Ox 99 98 97 O2 Delivery Room Air Room Air Room Air 04/15/20 00:00 Intake Total 400 ml Balance 400 ml Laboratory Tests Test 04/15/20 06:34 Range/Units White Blood Count 9.5 4.3-11.0 10^3/uL Red Blood Count 3.69 L 4.35-5.85 10^6/uL Hemoglobin 10.5 L 11.5-16.0 G/DL Hematocrit 32 L 35-52 % Mean Corpuscular Volume 86 80-99 FL Mean Corpuscular Hemoglobin 29 25-34 PG Mean Corpuscular Hemoglobin Concent 33 32-36 G/DL Red Cell Distribution Width 13.6 10.0-14.5 % Platelet Count 178 130-400 10^3/uL Mean Platelet Volume 11.0 H 7.4-10.4 FL Neutrophils (%) (Auto) 71 42-75 % Lymphocytes (%) (Auto) 19 12-44 % Monocytes (%) (Auto) 9 0-12 % Eosinophils (%) (Auto) 1 0-10 % Basophils (%) (Auto) 0 0-10 % Neutrophils # (Auto) 6.7 1.8-7.8 X 10^3 Lymphocytes # (Auto) 1.8 1.0-4.0 X 10^3 Monocytes # (Auto) 0.9 0.0-1.0 X 10^3 Eosinophils # (Auto) 0.1 0.0-0.3 10^3/uL Basophils # (Auto) 0.0 0.0-0.1 10^3/uL Physical Exam: General - Alert and oriented, no apparent distress Abdomen - Soft, appropriately tender to palpation, non-distended, fundus firm at umbilicus Extremities - no edema, negative Tonie's bilaterally Assessment: 1 post- day # 1, status post spont vaginal delivery. Recovering well, hemodynamically stable Plan: Routine care. Encourage breast feeding. Encourage ambulation. Ferrous sulfate supplementation. Plan for discharge Vitals - Labs Vital Signs - I&O Vital Signs Date Time Temp Pulse Resp B/P (MAP) Pulse Ox O2 Delivery O2 Flow Rate FiO2 04/15/20 04:00 35.9 72 16 91/56 (68) 97 Room Air 04/15/20 00:00 36.0 71 16 112/75 (87) 98 Room Air 04/14/20 20:00 36.7 64 18 107/70 (82) 99 Room Air 04/14/20 15:49 37.2 50 16 113/67 (82) 100 Room Air 04/14/20 11:52 36.6 63 16 110/68 (82) 99 Room Air 04/14/20 10:14 72 18 104/59 (74) Room Air 04/14/20 09:59 74 18 109/65 (80) Room Air 04/14/20 09:44 60 18 109/62 (78) Room Air 04/14/20 09:29 79 18 90/53 (65) Room Air 04/14/20 09:14 70 18 98/56 (70) Room Air 04/14/20 08:59 71 18 92/54 (67) Room Air 04/14/20 08:44 66 18 107/64 (78) Room Air 04/14/20 08:29 80 18 104/57 (73) Room Air 04/14/20 08:19 36.6 80 18 112/52 (72) Room Air 04/14/20 08:00 65 18 127/60 (82) 98 Room Air I & O 04/15/20 07:00 Intake Total 1400 ml Balance 1400 ml Labs Laboratory Tests 04/15/20 06:34: White Blood Count 9.5, Red Blood Count 3.69L, Hemoglobin 10.5L, Hematocrit 32L, Mean Corpuscular Volume 86, Mean Corpuscular Hemoglobin 29, Mean Corpuscular Hemoglobin Concent 33, Red Cell Distribution Width 13.6, Platelet Count 178, Mean Platelet Volume 11.0H, Neutrophils (%) (Auto) 71, Lymphocytes (%) (Auto) 19, Monocytes (%) (Auto) 9, Eosinophils (%) (Auto) 1, Basophils (%) (Auto) 0, Neutrophils # (Auto) 6.7, Lymphocytes # (Auto) 1.8, Monocytes # (Auto) 0.9, Eosinophils # (Auto) 0.1, Basophils # (Auto) 0.0 DM HUDSON DO Apr 15, 2020 07:57
--- NOTE | 2020-04-15 08:05 | Discharge Inst-Women's Service ---
Discharge Inst-Women's Serv Depart Medication/Instructions New, Converted or Re-Newed RX: Transmitted to Pharmacy Final Diagnosis labor 37 weeks gbs + Problems Reviewed?: Yes Consults/Follow Up Additional Follow Up: Yes (6 weeks) Activity Activity: Activity as Tolerated Driving Instructions: You May Drive NO SMOKING: NO SMOKING Nothing Inside Vagina: No Douching, No [place], No Tampons Diet Discharge Diet: No Restrictions Symptoms to Report to : Bleeding Excessive, Pain Increased, Fever Over 101 Degrees F, Vaginal Bleeding Increase, Cramps in Feet or Legs, Lightheadedness, Vaginal Discharge Foul For Any Problems or Questions: Contact Your Physician DM HUDSON DO Apr 15, 2020 08:04
[2020-04-15 08:20] VITALS: BP 113/77
[2020-04-15] MEDS: DOCUSATE SODIUM 100 MG (COLACE) CAP PO SCH (09:03)
[2020-04-15 12:45] VITALS: BP 104/60
--- NOTE | 2020-04-15 15:00 | NUR ---
POP PHELAN demonstrates understanding of discharge instructions and accurately returns instructions upon questioning. Copy of Post-Discharge Instructions and Medication Discharge Instructions given to patient. POP PHELAN is able to manage continuing needs after discharge. Patients belongings returned to patient. Skin dry and intact; no breakdown noted. Patient discharged from [facility]- on 04/15/20 at 1500. POP PHELAN left floor via wheel chair, accompanied by and women services staff.
== END 2020-04-15 15:00 | disposition home or self-care (01) | DRG 807 ==
LOC: LDRP 01:33 → WSo 01:33 → LDRP 02:27
PROVIDERS: ADMIT Obstetrics & Gynecology; ATTEND Obstetrics & Gynecology
PROC: 10E0XZZ Delivery of Products of Conception, External Approach (ICD-10-PCS; principal; 2020-04-14)
PROC: 0HQ9XZZ Repair Perineum Skin, External Approach (ICD-10-PCS; 2020-04-14)
DX: O99.824 Streptococcus B carrier state complicating childbirth (principal); Z37.0 Single live birth; Z3A.37 37 weeks gestation of pregnancy; O70.0 First degree perineal laceration during delivery; O71.82 Other specified trauma to perineum and vulva; O69.81X0 Labor and delivery complicated by cord around neck, without compression, not applicable or unspecified
CPT/HCPCS: 36415; 85025; 86850; 86900; 86901; 99212